=== PATIENT | male | born 1960 | race African-American/Black ===

== ENCOUNTER 2016-07-29 08:36 | Emergency (ER) | payer OTHER ==
[~2016-07-29] VITALS: Ht 175.3 cm; Wt 90.8 kg
[~2016-07-29 08:36] MED LIST: ASPI81TA11 PO; HYDR-3533 PO; LASI20TA PO; LISI5 PO
[2016-07-29 08:40] VITALS: BP 179/109; PULSE 104; RESP 20; TEMP 98.8; O2SAT 96
--- NOTE | 2016-07-29 09:28 | PD ---
HPI Chief Complaint: Cardiac Complaint Time Seen by Provider: 08:50 Travel History International Travel<30 days: No Contact w/Intl Traveler<30days: No Traveled to known affect area: No History of Present Illness HPI This is a 56-year-old male who has a history of chronic homelessness, and cocaine and alcohol abuse who presents to the emergency department requesting a wheelchair. It was documented out in triage that the patient said he had some chest pain. Here in the emergency department he says he just needs a wheelchair because his legs have gotten more swollen and he is tired and is having pain in his legs. He denies any chest pain or shortness of breath to me and denies any other acute complaints. PFSH Past Medical History Heart Rhythm Problems: No Cancer: No Cardiovascular Problems: Yes ([place] 1989) Congestive Heart Failure: Yes Cerebrovascular Accident: Yes ([facility] 1989) Diminished Hearing: No Endocrine: No Genitourinary: No Hypertension: Yes Immune Disorder: No Musculoskeletal: No Neurologic: No Psychiatric: No Reproductive: No Respiratory: Yes Tetanus Vaccination: < 5 Years Influenza Vaccination: Yes Past Surgical History Cardiac Surgery: Yes (chf) Other Surgery: Yes Social History Alcohol Use: Yes Tobacco Use: Yes Substance Use: No Allergies-Medications (Allergen,Severity, Reaction): Coded Allergies: No Known Allergies (Unverified , 11/22/15) Reported Meds & Prescriptions Reported Meds & Active Scripts Active Lortab 5 mg/325 mg (Hydrocodone/Acetaminophen 5 mg/325 mg) 1 Tab 1 Tab PO Q6H PRN Prinivil 5 mg (Lisinopril) 5 Mg Tab 2.5 Mg PO DAILY 30 Days Aspirin EC 81 mg (Aspirin) 81 Mg Tab 81 Mg PO DAILY 30 Days Lasix (Furosemide) 20 Mg Tab 20 Mg PO BID 30 Days Review of Systems Except as stated in HPI: all other systems reviewed are Neg Physical Exam Narrative GENERAL: Disheveled SKIN: Chronic skin thickening of the bilateral lower extremities. HEAD: Atraumatic. Normocephalic. EYES: Pupils equal and round. No injection or drainage. ENT: Moist mucous membranes NECK: Trachea midline. CARDIOVASCULAR: Regular rate and rhythm. No murmur appreciated. 2+ bilateral lower extremity pitting edema. RESPIRATORY: Clear to auscultation. Breath sounds equal bilaterally. GASTROINTESTINAL: Abdomen soft, non-tender, nondistended. MUSCULOSKELETAL: No obvious deformities. NEUROLOGICAL: Awake and alert. No obvious cranial nerve deficits. Moving all extremities. PSYCHIATRIC: Appropriate mood and affect; insight and judgment normal. Data Data Last Documented VS Vital Signs Date Time Temp Pulse Resp B/P Pulse Ox O2 Delivery O2 Flow Rate FiO2 07/29/16 08:40 98.8 104 20 179/109 96 Room Air MDM Medical Decision Making Medical Screen Exam Complete: Yes Emergency Medical Condition: Yes Interpretation(s) EKG: Normal sinus rhythm, T-wave inversions in the lateral leads seen on prior EKG Differential Diagnosis Homelessness Narrative Course This is a 56-year-old male who presents to the emergency department requesting a wheelchair. He has chronic pain in his legs that he says this been going on for 15 years. I think he has an acute medical issue. Some of his presentation may be related to substance abuse. Patient will be discharged. Diagnosis Primary Impression: Homelessness Patient Instructions: General Instructions Additional Instructions: Follow up with Abbie Cornell in regards to psychiatric or substance related issues at: [address] [place], [place] [id number] Med/Other Pt SpecificInfo: No Change to Meds Disposition: 01 DISCHARGE HOME Condition: Stable Brooke Lopez MD July 29, 2016 09:28
[2016-07-29] MEDS ORDERED: WHEEMIS3 (09:40)
[2016-07-29 09:48] VITALS: BP 165/91
--- NOTE | 2016-07-29 12:02 | EKG ---
Date Performed: 07/29/2016 Time Performed: 09:04:18 PTAGE: 56 years EKG: Sinus rhythm LEFT ATRIAL ENLARGEMENT LOW QRS VOLTAGE IN EXTREMITY LEADS Nonspecific ST-T wave changes INTERPRETAT ION BASED ON A DEFAULT AGE OF 40 YEARS NO PREVIOUS TRACING DOCTOR: Kyle Christensen Interpretating Date/Time 07/29/2016 12:00:55
== END 2016-07-29 09:53 | disposition home or self-care (01) ==
LOC: NEPE 08:36
DX: R60.0 Localized edema (principal); G89.29 Other chronic pain; I51.7 Cardiomegaly; I25.2 Old myocardial infarction; I50.9 Heart failure, unspecified; I10 Essential (primary) hypertension; Z72.0 Tobacco use; Z86.73 Personal history of transient ischemic attack (TIA), and cerebral infarction without residual deficits; Z59.0 Homelessness
CPT/HCPCS: 93005; 99283

== ENCOUNTER 2016-07-31 16:10 | Emergency (ER) | payer OTHER ==
[~2016-07-31] VITALS: Ht 177.8 cm; Wt 82.0 kg
[~2016-07-31 16:10] MED LIST changes: +WHEEMIS3
[2016-07-31 16:15] VITALS: BP 155/90; PULSE 105; RESP 20; TEMP 98.3; O2SAT 99
--- NOTE | 2016-07-31 16:33 | PD ---
HPI . Bleeding Chief Complaint: GI Complaint Time Seen by Provider: 16:18 Travel History International Travel<30 days: No Contact w/Intl Traveler<30days: No Traveled to known affect area: No History of Present Illness HPI Patient is brought in by EVAC with the chief complaint of bleeding. It is unclear as to exactly where the bleeding is coming from. She noticed it earlier today when he was having a bowel movement. It then recurred this afternoon and was more severe. EMS was called and he was brought to the hospital. He denies any pain. He states that he has had this happen to him before in the remote past and that he was seen and discharged from the emergency department. Patient states that he is not taking any blood thinners. Patient denies alcohol use. No obvious exacerbating or relieving factors. EMS reports that he has had approximately 150 cc of blood loss. PFSH Past Medical History Heart Rhythm Problems: No Cancer: No Cardiovascular Problems: Yes ([place] 1989) Congestive Heart Failure: Yes Cerebrovascular Accident: Yes ([facility] 1989) Diminished Hearing: No Endocrine: No Genitourinary: No Hypertension: Yes Immune Disorder: No Musculoskeletal: No Neurologic: No Psychiatric: No Reproductive: No Respiratory: Yes Myocardial Infarction: Yes ([place] 1989) Tetanus Vaccination: > 5 Years Influenza Vaccination: Yes Past Surgical History Cardiac Surgery: Yes (chf) Genitourinary Surgery: Yes (VASECTOMY) Other Surgery: Yes Social History Alcohol Use: Yes Tobacco Use: Yes Substance Use: No Allergies-Medications (Allergen,Severity, Reaction): Coded Allergies: No Known Allergies (Unverified , 07/31/16) Reported Meds & Prescriptions Reported Meds & Active Scripts Active Wheelchair (Device) 1 Mis Mis 1 Ea .ROUTE DIRECTED PRN Review of Systems Except as stated in HPI: all other systems reviewed are Neg General / Constitutional: No: Fever, Chills Gastrointestinal: No: Nausea, Vomiting, Diarrhea, Abdominal Pain Genitourinary: No: Urgency, Frequency, Dysuria Physical Exam Narrative GENERAL: Patient presents by EVAC on a stretcher that is covered in blood on the lower half of the stretcher. SKIN: Warm and dry. Numerous varicosities on the lower extremities. No active bleeding at this time. HEAD: Atraumatic. Normocephalic. EYES: Pupils equal and round. ENT: No nasal bleeding or discharge. Mucous membranes pink and moist. NECK: Trachea midline. Neck supple. CARDIOVASCULAR: Regular rate and rhythm. Heart sounds normal. RESPIRATORY: No accessory muscle use. Lungs clear. GASTROINTESTINAL: Abdomen soft, non-tender, nondistended. : No apparent bleeding from penis. Scrotal sac is enlarged and has varicosities. We have been unable to find any active from the scrotum. Patient would not allow rectal exam but there was no gross blood noted around the anus. MUSCULOSKELETAL: No obvious deformities. No edema. NEUROLOGICAL: Awake and alert. No obvious cranial nerve deficits. Motor grossly within normal limits. Normal speech. PSYCHIATRIC: Appropriate mood and affect; insight and judgment normal. Data Data Last Documented VS Vital Signs Date Time Temp Pulse Resp B/P Pulse Ox O2 Delivery O2 Flow Rate FiO2 07/31/16 16:15 98.3 105 20 155/90 99 Orders Cbc No Diff, Includes Plts (07/31/16 16:24) Labs Laboratory Tests Test 07/31/16 17:00 White Blood Count 7.3 TH/MM3 Red Blood Count 4.04 MIL/MM3 Hemoglobin 10.2 GM/DL Hematocrit 33.0 % Mean Corpuscular Volume 81.7 FL Mean Corpuscular Hemoglobin 25.3 PG Mean Corpuscular Hemoglobin 30.9 % Concent Red Cell Distribution Width 19.7 % Platelet Count 207 TH/MM3 Mean Platelet Volume 8.5 FL MDM Medical Decision Making Medical Screen Exam Complete: Yes Emergency Medical Condition: Yes Differential Diagnosis Differential diagnosis includes hematuria, hematochezia, bleeding varicosities Narrative Course Patient presents with bleeding from somewhere between his legs. We are unable to identify an obvious source of bleeding. The bleeding seems to have stopped. I will observe him for a period of time. I have ordered a CBC CBC Diagram 07/31/16 17:00 There has been no further bleeding. The patient will be discharged. Diagnosis Primary Impression: Scrotal bleeding Disposition: DISCHARGE HOME Condition: Stable Negar Osman MD July 31, 2016 16:33
[2016-07-31 17:22] LABS: MEAN CELL VOLUME 81.7 FL (80.0-100.0); MEAN CORPUSCULAR HEMOGLOBIN 25.3 PG (27.0-34.0); MEAN CORPUSCULAR HGB CONC 30.9 % (32.0-36.0); PLATELET COUNT 207 TH/MM3 (150-450); RED BLOOD COUNT 4.04 MIL/MM3 (4.50-5.90); RED CELL DISTRIBUTION WIDTH 19.7 % (11.6-17.2); REVIEW FLAG FINAL; WHITE BLOOD COUNT 7.3 TH/MM3 (4.0-11.0)
[2016-07-31 18:44] VITALS: BP 120/78; PULSE 80; RESP 20; O2SAT 92
== END 2016-07-31 18:46 | disposition home or self-care (01) ==
LOC: NEPC 16:10
DX: R58 Hemorrhage, not elsewhere classified (principal); I86.1 Scrotal varices
CPT/HCPCS: 85027; 99283